=== PATIENT | male | born 1955 | race African-American/Black ===

== ENCOUNTER 2025-01-15 19:25 | Emergency (ER) | payer MEDICAID ==
[~2025-01-15] VITALS: Ht 188 cm; Wt 62.2 kg
[2025-01-15] MEDS ORDERED: PRED20TA PO (19:44)
[2025-01-15] MEDS: predniSONE 20 mg tablet PO ONE (20:20)
[2025-01-15 20:34] VITALS: BP 111/62; PULSE 68; RESP 18; TEMP 98.6; O2SAT 99
== END 2025-01-15 20:36 | disposition home or self-care (01) ==
LOC: ER 19:26
DX: L20.9 Atopic dermatitis, unspecified (principal); Z79.899 Other long term (current) drug therapy
CPT/HCPCS: 99283; J7512

== ENCOUNTER 2025-04-05 15:12 | Emergency (ER) | payer MEDICARE, MEDICAID ==
[~2025-04-05] VITALS: Ht 188 cm; Wt 76.7 kg
[2025-04-05 15:27] VITALS: BP 136/91; PULSE 78; RESP 18; TEMP 98.2; O2SAT 98
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
--- NOTE | 2025-04-05 16:01 | RADIOLOGY REPORT ---
EXAM: DI FOREARM,INCL.ONE JOINT CLINICAL HISTORY: RIGHT ARM PAIN COMPARISON: None TECHNIQUE: DI FOREARM,INCL.ONE JOINT Findings/Impression: 2 views of the right forearm. There is no evidence of an acute fracture, dislocation, blastic, or lytic lesions. No radiopaque foreign bodies. Mild dorsal soft tissue edema.
[2025-04-05] MEDS: ibuprofen tablet 400 MG TABLET PO ONE (16:20)
== END 2025-04-05 16:26 | disposition home or self-care (01) ==
LOC: ER 15:13
DX: S50.11XA Contusion of right forearm, initial encounter (principal); Y08.89XA Assault by other specified means, initial encounter; Y93.89 Activity, other specified; Y92.89 Other specified places as the place of occurrence of the external cause; Y99.8 Other external cause status
CPT/HCPCS: 73090; 99283